=== PATIENT | male | born 1945 ===

== ENCOUNTER 2021-10-15 17:14 | Inpatient (IN) ==
[2021-10-15 19:55] LABS: ABS Lymphocytes 2.5 10^3/ul (1.0-4.8); ABS Monocytes 0.5 10^3/ul (0-0.8); ABS Neutrophils 5.5 10^3/ul (1.5-7.7); Hematocrit 34 % (42-52); Hemoglobin 11.5 g/dL (14.0-18.0); Lymphocyte % 29.7 %; Mean Corpuscular HGB Conc 34 g/dL (31-36); Mean Corpuscular Hemoglobin 29 pg (27-31); Mean Corpuscular Volume 86 fL (80-94); Platelet Count 315 10^3/uL (150-450); Red Blood Count 3.98 10^6 /uL (4.18-5.48); Red Cell Distribution Width 17 % (10-15); White Blood Count 8.6 10^3/uL (3.5-10.8)
[2021-10-15 20:50] LABS: Albumin 3.4 g/dL (3.2-5.2); Albumin/Globulin Ratio 1.5 (1-3); Calcium 8.5 mg/dL (8.6-10.3); Globulin 2.2 g/dL (2-4); Magnesium 2.4 mg/dL (1.9-2.7); Total Bilirubin 0.4 mg/dL (0.2-1.0); Total Protein 5.6 g/dL (6.4-8.9); eGFR CKD-EPI 68.6 (>60)
[2021-10-15 20:59] LABS: Potassium 5.2 mmol/L (3.5-5.0)
[2021-10-15 21:02] LABS: TSH Ultra Thyroid Stim Horm 2.81 mcIU/mL (0.34-5.60)
[2021-10-15] MEDS ORDERED: Magnesium Hydroxide LIQ 30 ML UDC PO PRN (23:11)
[2021-10-15] MEDS ORDERED: Al Hydrox/Mg Hydrox/Simet LIQ 30 ML UDC PO PRN (23:11)
[2021-10-15] MEDS ORDERED: Senna TAB 8.6 mg TAB PO PRN (23:44)
[2021-10-15] MEDS ORDERED: Enoxaparin 40 MG/0.4 ML SYR SUBCUT SCH (23:45)
[2021-10-16] MEDS: Magnesium Hydroxide LIQ 30 ML UDC PO SCH ×4 (01:36→23:38)
[2021-10-16 05:39] LABS: ABS Lymphocytes 2.4 10^3/ul (1.0-4.8); ABS Monocytes 0.7 10^3/ul (0-0.8); ABS Neutrophils 3.4 10^3/ul (1.5-7.7); Eosinophil % 0.7 %; Hematocrit 30 % (42-52); Hemoglobin 10.4 g/dL (14.0-18.0); Lymphocyte % 36.4 %; Mean Corpuscular HGB Conc 35 g/dL (31-36); Mean Corpuscular Hemoglobin 29 pg (27-31); Mean Corpuscular Volume 84 fL (80-94); Mean Platelet Volume 6.9 fL (7.4-10.4); Platelet Count 264 10^3/uL (150-450); Red Blood Count 3.56 10^6 /uL (4.18-5.48); Red Cell Distribution Width 17 % (10-15); White Blood Count 6.5 10^3/uL (3.5-10.8)
[2021-10-16 06:24] LABS: Anion Gap 9 mmol/L (2-11); CO2 Carbon Dioxide 24 mmol/L (22-32); Calcium 8.2 mg/dL (8.6-10.3); Chloride 104 mmol/L (101-111); Potassium 4.3 mmol/L (3.5-5.0); Sodium 137 mmol/L (135-145)
[2021-10-16 06:30] LABS: Blood Urea Nitrogen 15 mg/dL (6-24); Glucose 81 mg/dL (70-100); eGFR CKD-EPI 76.7 (>60)
[2021-10-16 07:13] LABS: Folate > 20.00 ng/mL (5.90-24.80)
[2021-10-16 07:14] LABS: Vitamin B12 768 pg/mL (180-914)
[2021-10-16 07:17] LABS: Vitamin D Total 25(OH) 43.4 ng/mL (20-50)
[2021-10-16] MEDS: Polyethylene Glycol 3350 17 GM PACKET PO SCH ×2 (08:30→21:05)
[2021-10-16] MEDS ORDERED: Gadoteridol (CONTRAST) 279.3 MG/ML 10 ML IV ONE (16:17)
[2021-10-16 19:29] LABS: Rheumatoid Factor < 10 IU/mL (<15)
[2021-10-16 22:46] LABS: HIV 4th Generation Nonreactive (Nonreactive)
[2021-10-17 06:10] LABS: ABS Lymphocytes 2.6 10^3/ul (1.0-4.8); ABS Monocytes 1.1 10^3/ul (0-0.8); ABS Neutrophils 4.8 10^3/ul (1.5-7.7); Eosinophil % 0.5 %; Hematocrit 29 % (42-52); Hemoglobin 9.8 g/dL (14.0-18.0); Lymphocyte % 30.3 %; Mean Corpuscular HGB Conc 33 g/dL (31-36); Mean Corpuscular Hemoglobin 28 pg (27-31); Mean Corpuscular Volume 84 fL (80-94); Mean Platelet Volume 7.2 fL (7.4-10.4); Platelet Count 254 10^3/uL (150-450); Red Blood Count 3.49 10^6 /uL (4.18-5.48); Red Cell Distribution Width 17 % (10-15); White Blood Count 8.6 10^3/uL (3.5-10.8)
[2021-10-17] MEDS: Polyethylene Glycol 3350 17 GM PACKET PO SCH ×2 (08:37→20:56)
[2021-10-17 10:41] LABS: Body Fluid Source Cerebral Spinal
[2021-10-17 11:06] LABS: CSF Glucose 44 mg/dL (40-70)
[2021-10-17 12:23] LABS: Body Fluid Mono 8 %; Body Fluid Other Cells 6; Body Fluid Total Cells Counted 200
[2021-10-17 12:24] LABS: CSF Tube # 3
[2021-10-17 12:27] LABS: Body Fluid Appearance Clear; Body Fluid Color Colorless
[2021-10-17 12:38] LABS: Body Fluid WBC 20.5 /mcL
[2021-10-17] MEDS: Magnesium Hydroxide LIQ 30 ML UDC PO SCH ×2 (14:54→23:28)
[2021-10-17] MEDS: cefTRIAXone 2 gm/50 mL D5W 2 GM/50 ML BAG IV SCH (14:55)
[2021-10-18] MEDS: cefTRIAXone 2 gm/50 mL D5W 2 GM/50 ML BAG IV SCH ×2 (01:49→15:19)
[2021-10-18 07:50] LABS: ABS Eosinophils 0.1 10^3/ul (0-0.6); ABS Lymphocytes 3.5 10^3/ul (1.0-4.8); ABS Monocytes 0.9 10^3/ul (0-0.8); ABS Neutrophils 5.2 10^3/ul (1.5-7.7); Hematocrit 32 % (42-52); Hemoglobin 10.7 g/dL (14.0-18.0); Lymphocyte % 35.8 %; Mean Corpuscular HGB Conc 33 g/dL (31-36); Mean Corpuscular Hemoglobin 28 pg (27-31); Mean Corpuscular Volume 84 fL (80-94); Mean Platelet Volume 6.5 fL (7.4-10.4); Platelet Count 283 10^3/uL (150-450); Red Blood Count 3.82 10^6 /uL (4.18-5.48); Red Cell Distribution Width 17 % (10-15); White Blood Count 9.8 10^3/uL (3.5-10.8)
[2021-10-18 08:27] LABS: Potassium 4.5 mmol/L (3.5-5.0)
[2021-10-18] MEDS: Polyethylene Glycol 3350 17 GM PACKET PO SCH ×2 (08:34→21:05)
[2021-10-18] MEDS: Magnesium Hydroxide LIQ 30 ML UDC PO SCH ×2 (11:31→23:05)
[2021-10-18] MEDS ORDERED: Gadoteridol (CONTRAST) 279.3 MG/ML 10 ML IV ONE (13:50)
[2021-10-19] MEDS: cefTRIAXone 2 gm/50 mL D5W 2 GM/50 ML BAG IV SCH ×2 (02:56→13:16)
[2021-10-19 05:32] LABS: ABS Lymphocytes 2.5 10^3/ul (1.0-4.8); ABS Monocytes 0.8 10^3/ul (0-0.8); ABS Neutrophils 5.5 10^3/ul (1.5-7.7); Eosinophil % 0.3 %; Hematocrit 28 % (42-52); Hemoglobin 9.5 g/dL (14.0-18.0); Lymphocyte % 28.1 %; Mean Corpuscular HGB Conc 34 g/dL (31-36); Mean Corpuscular Hemoglobin 28 pg (27-31); Mean Corpuscular Volume 84 fL (80-94); Mean Platelet Volume 7.2 fL (7.4-10.4); Platelet Count 236 10^3/uL (150-450); Red Blood Count 3.36 10^6 /uL (4.18-5.48); Red Cell Distribution Width 17 % (10-15); White Blood Count 8.7 10^3/uL (3.5-10.8)
[2021-10-19] MEDS: Polyethylene Glycol 3350 17 GM PACKET PO SCH ×2 (08:32→21:02)
[2021-10-19] MEDS: Magnesium Hydroxide LIQ 30 ML UDC PO SCH ×2 (10:00→22:12)
[2021-10-19 14:52] LABS: CSF Cryptococcus Antigen Titer Negative (Negative)
[2021-10-19] MEDS: Enoxaparin 40 MG/0.4 ML SYR SUBCUT SCH (18:02)
[2021-10-19 18:35] LABS: Cyclic Citrullinated Peptide <15.6 U
[2021-10-20] MEDS: cefTRIAXone 2 gm/50 mL D5W 2 GM/50 ML BAG IV SCH ×2 (01:40→14:01)
[2021-10-20 05:48] LABS: ABS Basophils 0.1 10^3/ul (0-0.2); ABS Eosinophils 0.1 10^3/ul (0-0.6); ABS Lymphocytes 2.8 10^3/ul (1.0-4.8); ABS Monocytes 0.8 10^3/ul (0-0.8); ABS Neutrophils 4.3 10^3/ul (1.5-7.7); Eosinophil % 0.8 %; Hematocrit 30 % (42-52); Hemoglobin 9.5 g/dL (14.0-18.0); Lymphocyte % 34.6 %; Mean Corpuscular HGB Conc 32 g/dL (31-36); Mean Corpuscular Hemoglobin 28 pg (27-31); Mean Corpuscular Volume 85 fL (80-94); Mean Platelet Volume 7.5 fL (7.4-10.4); Platelet Count 236 10^3/uL (150-450); Red Blood Count 3.45 10^6 /uL (4.18-5.48); Red Cell Distribution Width 18 % (10-15)
[2021-10-20 06:39] LABS: Calcium 7.7 mg/dL (8.6-10.3); Potassium 4.1 mmol/L (3.5-5.0); eGFR CKD-EPI 91.8 (>60)
[2021-10-20] MEDS: Polyethylene Glycol 3350 17 GM PACKET PO SCH ×2 (08:36→21:40)
[2021-10-20] MEDS: Magnesium Hydroxide LIQ 30 ML UDC PO SCH (11:05)
[2021-10-20 14:19] LABS: CSF Oligoclonal Bands 5 bands; Oligoclonal Proteins Interpret 4 bands (<2); Serum Oligoclonal Bands 1 bands
[2021-10-20 14:39] LABS: CSF VDRL Negative (Negative)
[2021-10-20] MEDS: Enoxaparin 40 MG/0.4 ML SYR SUBCUT SCH (21:41)
[2021-10-20 22:48] LABS: Anaplasma phagocytophilum Negative (Negative); B. miyamotoi PCR, B Negative (Negative); Babesia divergens/MO-1 Negative (Negative); Babesia ducani Negative (Negative); Ehrlichia chaffeensis Negative (Negative); Ehrlichia ewingii/canis Negative (Negative); Ehrlichia muris eauclairensis Negative (Negative)
[2021-10-21] MEDS: Magnesium Hydroxide LIQ 30 ML UDC PO SCH ×3 (00:32→22:20)
[2021-10-21] MEDS: cefTRIAXone 2 gm/50 mL D5W 2 GM/50 ML BAG IV SCH ×2 (02:24→13:19)
[2021-10-21] MEDS: Polyethylene Glycol 3350 17 GM PACKET PO SCH ×2 (10:17→22:21)
[2021-10-21] MEDS ORDERED: Lactulose 30 ml UDC PO PRN (13:17)
[2021-10-21 13:34] LABS: Toxoplasma IgG Antibody Positive (Negative); Toxoplasma IgG Antibody Index 17 IU/mL; Toxoplasma IgM Antibody Negative (Negative)
[2021-10-21 14:05] LABS: TB1 Ag minus Nil Result 0.03 IU/mL
[2021-10-21 14:06] LABS: QuantiferonTb Gold Plus Result Negative (Negative)
[2021-10-21 15:26] LABS: IgG Immunoblot Negative (Negative); IgM Immunoblot Positive (Negative)
[2021-10-21 15:30] LABS: B. garinii/B. afzellii PCR Negative (Negative); Lyme Disease Source CSF
[2021-10-21] MEDS ORDERED: Senna TAB 8.6 mg TAB PO SCH (21:00)
[2021-10-21] MEDS: Enoxaparin 40 MG/0.4 ML SYR SUBCUT SCH (22:17)
[2021-10-22 00:35] LABS: Bartonella Henselae IgG <1:128 titer (<1:128); Bartonella Henselae IgM <1:20 titer (<1:20); Bartonella Quintana IgG <1:128 titer (<1:128); Bartonella Quintana IgM <1:20 titer (<1:20)
[2021-10-22] MEDS: cefTRIAXone 2 gm/50 mL D5W 2 GM/50 ML BAG IV SCH ×2 (02:07→14:47)
[2021-10-22] MEDS: Polyethylene Glycol 3350 17 GM PACKET PO SCH (08:15)
[2021-10-22] MEDS: Magnesium Hydroxide LIQ 30 ML UDC PO SCH ×2 (08:15→09:03)
[2021-10-22 10:17] LABS: AGNA-1, CSF Negative titer (<1:2); Amphiphysin Ab, CSF Negative titer (<1:2); CRMP-5-IgG, CSF Negative titer (<1:2); PCA-1, CSF Negative titer (<1:2); PCA-2, CSF Negative titer (<1:2); PCA-Tr, CSF Negative titer (<1:2)
[2021-10-22] MEDS ORDERED: Glycerin ADULT 2.4 gm SUPP PR ONE (11:14)
[2021-10-22 15:59] VITALS: BP 122/80
[2021-10-22] MEDS ORDERED: Morphine 2 MG/ML SYRINGE IV ONE (16:27)
[2021-10-22] MEDS ORDERED: Morphine 2 MG/ML SYRINGE ONE (16:31)
[2021-10-26 06:11] LABS: NMO/AQP4 IgG Negative (Negative)
[2021-11-05 22:19] LABS: Lyme CNS IgG Ab Index Interp Positive; Lyme CNS IgG Ab Index Value 1.8 (0.6 - 1.2)
== END 2021-10-22 18:20 | disposition home health service (06) | DRG 724 ==
LOC: EDHOLD 17:14 → ED 17:14 → SUATTDRO 23:09 → SSU 10-16 12:13 → SUATTDRO 10-16 17:30
PROVIDERS: ADMIT Student in an Organized Health Care Education/Training Program; ATTEND Internal Medicine

== ENCOUNTER 2021-11-10 17:17 | Observation (INO) ==
[2021-11-10 20:57] LABS: ABS Lymphocytes 2.1 10^3/ul (1.0-4.8); ABS Monocytes 0.6 10^3/ul (0-0.8); ABS Neutrophils 5.1 10^3/ul (1.5-7.7); Eosinophil % 0.2 %; Hematocrit 36 % (42-52); Hemoglobin 11.9 g/dL (14.0-18.0); Lymphocyte % 27.1 %; Mean Corpuscular HGB Conc 33 g/dL (31-36); Mean Corpuscular Hemoglobin 28 pg (27-31); Mean Corpuscular Volume 85 fL (80-94); Mean Platelet Volume 7.5 fL (7.4-10.4); Nucleated Red Blood Cells % 0.1; Platelet Count 189 10^3/uL (150-450); Red Blood Count 4.27 10^6 /uL (4.18-5.48); Red Cell Distribution Width 18 % (10-15); White Blood Count 7.9 10^3/uL (3.5-10.8)
[2021-11-10 21:31] LABS: ALT 13 U/L (7-52); Albumin 3.7 g/dL (3.2-5.2); Albumin/Globulin Ratio 1.7 (1-3); Alkaline Phosphatase 48 U/L (35-149); Blood Urea Nitrogen 19 mg/dL (6-24); CO2 Carbon Dioxide 28 mmol/L (22-32); Calcium 8.7 mg/dL (8.6-10.3); Chloride 107 mmol/L (101-111); Globulin 2.2 g/dL (2-4); Glucose 103 mg/dL (70-100); Sodium 138 mmol/L (135-145); Total Protein 5.9 g/dL (6.4-8.9); eGFR CKD-EPI 91.4 (>60)
[2021-11-10 21:38] LABS: Anion Gap 3 mmol/L (2-11)
[2021-11-10] MEDS ORDERED: Polyethylene Glycol 3350 17 GM PACKET PO PRN (22:39)
[2021-11-10] MEDS: Enoxaparin 40 MG/0.4 ML SYR SUBCUT SCH (23:27)
[2021-11-11 04:15] LABS: C Reactive Protein 1.88 mg/L (<8.01)
[2021-11-11] MEDS: Polyethylene Glycol 3350 17 GM PACKET PO SCH ×2 (10:17→20:39)
[2021-11-11] MEDS: Senna TAB 8.6 mg TAB PO PRN ×2 (10:35→20:39)
[2021-11-11] MEDS ORDERED: Gadoteridol (CONTRAST) 279.3 MG/ML 10 ML IV ONE (11:58)
[2021-11-11] MEDS: Magnesium Hydroxide LIQ 30 ML UDC PO SCH ×2 (15:40→23:33)
[2021-11-11] MEDS ORDERED: methylPREDNISolone SOD SUCC 1,000 MG in NS 0.9% 250 ml 250 ML IVPB ONE (18:00)
[2021-11-11] MEDS: Enoxaparin 40 MG/0.4 ML SYR SUBCUT SCH (20:38)
[2021-11-12] MEDS ORDERED: Calcium Carb (TUMS) 500 mg CHEW TAB PO ONE ×2 (09:17→09:53)
[2021-11-12] MEDS: Senna TAB 8.6 mg TAB PO PRN ×2 (10:13→20:30)
[2021-11-12] MEDS: Cholecalciferol (VIT D3) 400 units TAB PO SCH (10:16)
[2021-11-12] MEDS: Polyethylene Glycol 3350 17 GM PACKET PO SCH ×2 (10:24→20:31)
[2021-11-12] MEDS: VITAMIN B12 100 MCG PO SCH (10:26)
[2021-11-12] MEDS: Magnesium Hydroxide LIQ 30 ML UDC PO SCH ×2 (12:55→23:50)
[2021-11-12] MEDS ORDERED: methylPREDNISolone SOD SUCC 1,000 MG in NS 0.9% 250 ml 250 ML IVPB ONE (13:00)
[2021-11-12] MEDS: Enoxaparin 40 MG/0.4 ML SYR SUBCUT SCH (20:30)
[2021-11-13 06:56] LABS: Calcium 8.7 mg/dL (8.6-10.3); Potassium 4.3 mmol/L (3.5-5.0); eGFR CKD-EPI 87.8 (>60)
[2021-11-13] MEDS: Cholecalciferol (VIT D3) 400 units TAB PO SCH (09:22)
[2021-11-13] MEDS: Polyethylene Glycol 3350 17 GM PACKET PO SCH (09:23)
[2021-11-13] MEDS: VITAMIN B12 100 MCG PO SCH (09:23)
[2021-11-13] MEDS ORDERED: methylPREDNISolone SOD SUCC 1,000 MG in NS 0.9% 250 ml 250 ML IVPB ONE (11:00)
[2021-11-13] MEDS: Magnesium Hydroxide LIQ 30 ML UDC PO SCH (11:36)
[2021-11-13 12:05] VITALS: BP 127/66
== END 2021-11-13 15:35 | disposition home or self-care (01) ==
LOC: ED 17:17 → EDHOLD 17:17 → SUATTDRO 22:31 → MEDTELE 11-11 01:27
PROVIDERS: ADMIT Internal Medicine; ATTEND Internal Medicine